=== PATIENT | female | born 1945 | race Caucasian/White ===

== ENCOUNTER 2017-09-10 07:06 | Day surgery (SDC) | payer OTHER ==
[2017-09-09 14:26] VITALS: BMI 25.7
[2017-09-10] MEDS ORDERED: LIDOCAINE HCL 2% (20ML MULTI-DOSE VIAL) NR ONE (07:59)
[2017-09-10] MEDS ORDERED: PROPOFOL 20 ML ONE (08:00)
[2017-09-10] MEDS ORDERED: LIDOCAINE VISCOUS 2% ORAL/TOP 100 ML BOTTLE PO ONE (08:05)
[2017-09-10 09:05] VITALS: PULSE 62
[2017-09-10 09:26] VITALS: BP 114/72; TEMP 98
--- NOTE | 2017-09-11 12:28 | PATH ---
Surgical Pathology Report Patient Name: HANNAH AGARWAL [facility]. Rec. #: [id number] /Age/Gender: 1945 (Age: 72) / F Account: [id number] Location: [facility]-ENDOSCOPY Taken: 09/10/2017 Received: 09/10/2017 Reported: 09/11/2017 Physicians: Sola Cruz M.D. Specimen(s) Received A: BX DUODENUM 2ND PORTION BULB B: BX ANTRUM C: BX DISTAL AND MID ESOPHAGUS Clinical History Lower recto sternal ???process Atrophic gastritis, hiatal hernia Final Diagnosis A. DUODENUM, SECOND PORTION AND BULB, BIOPSY: DUODENAL MUCOSA WITH NO PATHOLOGIC CHANGES. NO HISTOLOGIC EVIDENCE OF GLUTEN SENSITIVE ENTEROPATHY (CELIAC SPRUE) IDENTIFIED. B. STOMACH, ANTRUM, BIOPSY: MILD TO MODERATE CHRONIC ACTIVE GASTRITIS. IMMUNOSTAIN FOR H. PYLORI IS POSITIVE (MODERATE NUMBERS OF ORGANISMS). C. DISTAL AND MID ESOPHAGUS, BIOPSY: SQUAMOUS EPITHELIUM WITH NO PATHOLOGIC CHANGES. NO INTESTINAL METAPLASIA IDENTIFIED (NO BERGMAN'S IDENTIFIED). NO EOSINOPHILIC ESOPHAGITIS IDENTIFIED. Electronically Signed Dakota Alexandre M.D. Gross Description A. Received in formalin, labeled "biopsy duodenum second portion and bulb" are 3 aggarwal, irregular portions of soft tissue averaging 0.3 cm. in greatest dimension. The specimens are submitted in toto in one cassette. B. Received in formalin, labeled "biopsy antrum" are 3 aggarwal, irregular portions of soft tissue ranging from 0.4-0.6 cm. in greatest dimension. The specimens are submitted in toto in one cassette. C. Received in formalin, labeled "biopsy distal and mid esophagus" are 2 aggarwal, irregular portions of soft tissue measuring 0.6 and 0.7 cm. in greatest dimension. The specimens are submitted in toto in one cassette. DL/09/10/2017 saudi09/10/2017
== END 2017-09-10 09:26 | disposition home or self-care (01) ==
LOC: JASU-ENDO 07:06
PROVIDERS: ATTEND Internal Medicine Gastroenterology
PROC: 0DB68ZX Excision of Stomach, Via Natural or Artificial Opening Endoscopic, Diagnostic (ICD-10-PCS; 2017-09-10)
PROC: 0DB28ZX Excision of Middle Esophagus, Via Natural or Artificial Opening Endoscopic, Diagnostic (ICD-10-PCS; 2017-09-10)
PROC: 0DB38ZX Excision of Lower Esophagus, Via Natural or Artificial Opening Endoscopic, Diagnostic (ICD-10-PCS; principal; 2017-09-10 08:00)
DX: K21.9 Gastro-esophageal reflux disease without esophagitis (principal); K44.9 Diaphragmatic hernia without obstruction or gangrene
CPT/HCPCS: 88305-TC; 88342-TC

== ENCOUNTER 2018-11-28 09:18 | Emergency (ER) | payer OTHER ==
[2018-11-28 09:28] VITALS: BP 120/74; PULSE 83; TEMP 97.5; BMI 25.4
--- NOTE | 2018-11-28 09:32 | PDOC ---
History of Present Illness - General Chief Complaint: Injury Stated Complaint: RT ANKLE INJURY Time Seen by Provider: 11/28/18 09:25 History Source: Patient Exam Limitations: No Limitations - History of Present Illness Initial Comments: 11/28/18 10:11 Fell from step inverting her right ankle Occurred: reports: yesterday Severity: reports: moderate Pain Location: reports: none, lower extremity (right ankle ) Method of Injury: Yes: fall Modifying Factors: improves with: None Loss of Consciousness: no loss of consciousness Past History - Travel Traveled outside of the country in the last 30 days: No Close contact w/someone who was outside of country & ill: No - Past Medical History Allergies/Adverse Reactions: Allergies Allergy/AdvReac Type Severity Reaction Status Date / Time No Known Drug Allergies Allergy Verified 11/28/18 09:24 Home Medications: Ambulatory Orders Pravastatin Sodium 20 mg PO DAILY 02/13/15 Azelastine HCl 137 mcg NS BID 09/10/17 Cyanocobalamin (Vitamin B-12) [Vitamin B12] 2,500 mcg PO DAILY 09/10/17 Docusate Sodium [Stool Softener] 50 mg PO DAILY 09/10/17 Fluticasone Prop 0.05% Nasal [Flonase -] 1 - 2 spray NS BID 09/10/17 Ranitidine [Zantac -] 150 mg PO BID #180 tablet 09/10/17 Anemia: Yes Asthma: No Cancer: Yes (RIGHT Breast cancer (1990),MELANOMA) Cardiac Disorders: Yes (MVP WITH PSVTs) CVA: No COPD: Yes CHF: No Dementia: No Diabetes: No GI Disorders: No Disorders: Yes (PROLAPSED BLADDER, FREQ UTI'S) HTN: No Hypercholesterolemia: Yes Liver Disease: No Seizures: No Thyroid Disease: No - Surgical History Abdominal Surgery: Yes (LAPAROSCOPY TO MEND TUBAL SCARRING) Appendectomy: No Cardiac Surgery: No Cholecystectomy: No Lung Surgery: No Neurologic Surgery: No Orthopedic Surgery: No - Immunization History Immunization Up to Date: Yes - Suicide/Smoking/Psychosocial Hx Smoking History: Current every day smoker Have you smoked in the past 12 months: Yes Number of Cigarettes Smoked Daily: 10 Information on smoking cessation initiated: No 'Breaking Loose' booklet given: 09/10/17 Hx Alcohol Use: No Drug/Substance Use Hx: No Substance Use Type: Alcohol Hx Substance Use Treatment: No Review of Systems - Review of Systems Able to Perform ROS?: Yes Is the patient limited Latvian proficient: Yes Constitutional: Yes: Symptoms Reported, See HPI, Malaise. No: Fever HEENTM: No: Symptoms Reported Respiratory: No: Symptoms reported Cardiac (ROS): No: Symptoms Reported Musculoskeletal: Yes: Symptoms Reported, See HPI, Joint Pain, Joint Swelling, Muscle Pain All Other Systems: Reviewed and Negative *Physical Exam - Vital Signs Last Vital Signs Temp Pulse Resp BP Pulse Ox 97.5 F L 83 16 120/74 96 11/28/18 09:24 11/28/18 09:24 11/28/18 09:24 11/28/18 09:24 11/28/18 09:24 - Physical Exam General Appearance: Yes: Nourished, Appropriately Dressed, Apparent Distress, Mild Distress HEENT: positive: VICKIE, Normal ENT Inspection, TMs Normal, Pharynx Normal Neck: positive: Supple. negative: Tender, Lymphadenopathy (R), Lymphadenopathy (L) Respiratory/Chest: positive: Lungs Clear, Normal Breath Sounds Gastrointestinal/Abdominal: positive: Soft. negative: Tender Musculoskeletal: negative: Normal Inspection, Vertebral Tenderness Extremity: positive: Normal Capillary Refill. negative: Normal Range of Motion (many range of motion secondary to swelling, tenderness to lateral malleolus, with point tenderness. Has no tenderness to navicular, fifth metatarsal, or medial malleolus. Negative squeeze test. Neurovascular intact to toes.) Integumentary: positive: Normal Color, Dry, Warm, Ecchymosis, Bruising Neurologic: positive: collections assistant II-XII NML intact, Fully Oriented, Alert, Normal Mood/ Affect, Normal Response Moderate Sedation - Procedure Monitoring Vital Signs: Procedure Monitoring Vital Signs Temperature 97.5 F L 11/28/18 09:24 Pulse Rate 83 11/28/18 09:24 Respiratory Rate 16 11/28/18 09:24 Blood Pressure 120/74 11/28/18 09:24 O2 Sat by Pulse Oximetry (%) 96 11/28/18 09:24 ED Treatment Course - RADIOLOGY Radiology Studies Ordered: Category Date Time Status ANKLE-RIGHT [RAD] Stat Radiology 11/28/18 09:31 Ordered Progress Note - Progress Note Progress Note: X-ray negative for fractures or dislocations, Eligio wrap and Aircast applied, will treat for ankle sprain and follow-up with orthopod *DC/Admit/Observation/Transfer Diagnosis at time of Disposition: Right ankle sprain Qualifiers: Encounter type: initial encounter Involved ligament of ankle: unspecified ligament Qualified Code(s): S93.401A - Sprain of unspecified ligament of right ankle, initial encounter - Discharge Dispostion Disposition: HOME Condition at time of disposition: Stable Decision to Admit order: No - Referrals Referrals: Saji Leal MD [Primary Care Provider] - Fracisco Dia MD [Staff Physician] - - Patient Instructions Printed Discharge Instructions: DI for Ankle Sprain Additional Instructions: Rest, ice to area on and off for 15 minutes 4-6 times a day Avoid heavy lifting or exercise until pain and swelling is resolved or until further directed Keep area highly elevated to reduce swelling Use splints/Eligio wrap as directed Followup with orthopedist in one to 2 days if not improving, if significantly improved may wait one week for followup with orthopedist May use ibuprofen 2-200 mg tablets every 6 hours as needed for pain - Post Discharge Activity
== END 2018-11-28 09:59 | disposition home or self-care (01) ==
LOC: JERFT 09:18
PROC: 2W3QX1Z Immobilization of Right Lower Leg using Splint (ICD-10-PCS; principal; 2018-11-28)
DX: S93.401A Sprain of unspecified ligament of right ankle, initial encounter (principal); W10.8XXA Fall (on) (from) other stairs and steps, initial encounter; Y93.89 Activity, other specified; Y92.89 Other specified places as the place of occurrence of the external cause; Y99.8 Other external cause status; D64.9 Anemia, unspecified; J44.9 Chronic obstructive pulmonary disease, unspecified; E78.00 Pure hypercholesterolemia, unspecified; Z85.3 Personal history of malignant neoplasm of breast; Z85.820 Personal history of malignant melanoma of skin
CPT/HCPCS: 29515; 73610-TC-RT-FY; 99281-25

== ENCOUNTER 2020-01-10 09:14 | Day surgery (SDC) | payer OTHER ==
[2020-01-07 16:32] VITALS: BMI 26.3
[2020-01-10 11:39] VITALS: TEMP 97.3
[2020-01-10 12:09] VITALS: BP 147/89; PULSE 67
--- NOTE | 2020-01-11 16:49 | PATH ---
Surgical Pathology Report Patient Name: HANNAH AGARWAL [facility]. Rec. #: [id number] /Age/Gender: 1945 (Age: 74) / F Account: [id number] Location: [facility]-ENDOSCOPY Taken: 01/10/2020 Received: 01/10/2020 Reported: 01/11/2020 Physicians: Sola Cruz M.D. Specimen(s) Received A: 2ND PORTION DUODENUM AND BULB B: GASTRIC ANTRUM C: GE JUNCTION D: MID ESOPHAGUS Clinical History Abdominal pain Postoperative diagnosis: Hiatal hernia and GERD Final Diagnosis A. BULB AND SECOND PORTION OF DUODENUM, BIOPSY: DUODENAL MUCOSA WITH NO SIGNIFICANT PATHOLOGIC CHANGE. NO HISTOLOGIC EVIDENCE OF INTRAEPITHELIAL LYMPHOCYTOSIS. B. GASTRIC ANTRUM, BIOPSY: GASTRIC MUCOSA WITH MARKED ACTIVE CHRONIC GASTRITIS. IMMUNOSTAIN FOR H. PYLORI IS POSITIVE. NEGATIVE FOR INTESTINAL METAPLASIA. C. GE JUNCTION, BIOPSY: SQUAMOUS / GLANDULAR JUNCTIONAL MUCOSA WITH CHRONIC INFLAMMATION AND FOCAL CHANGES CONSISTENT WITH REFLUX ESOPHAGITIS. NEGATIVE FOR INTESTINAL METAPLASIA. D. MID ESOPHAGUS, BIOPSY: ESOPHAGEAL MUCOSA WITH NO SIGNIFICANT CHANGE. NO HISTOLOGIC EVIDENCE OF EOSINOPHILIC ESOPHAGITIS. Electronically Signed Eric Mcdonnell M.D. Gross Description A. Received in formalin, labeled "biopsy bulb and second portion of duodenum" are 3 aggarwal, irregular portions of soft tissue ranging from 0.4-0.5 cm. in greatest dimension. The specimens are submitted in toto in one cassette. B. Received in formalin, labeled "biopsy gastric antrum" are 4 aggarwal, irregular portions of soft tissue ranging from 0.2-0.4 cm. in greatest dimension. The specimens are submitted in toto in one cassette. C. Received in formalin, labeled "GE junction biopsy" are 3 aggarwal, irregular portions of soft tissue ranging from 0.2-0.3 cm. in greatest dimension. The specimens are submitted in toto in one cassette. D. Received in formalin, labeled "mid esophagus biopsy" are 3 aggarwal, irregular portions of soft tissue ranging from 0.1-0.2 cm. in greatest dimension. The specimens are submitted in toto in one cassette. /01/10/2020 saudi/01/10/2020
== END 2020-01-10 12:37 | disposition home or self-care (01) ==
LOC: JASU-ENDO 09:14
PROVIDERS: ATTEND Internal Medicine Gastroenterology
PROC: 0DB68ZX Excision of Stomach, Via Natural or Artificial Opening Endoscopic, Diagnostic (ICD-10-PCS; 2020-01-10)
PROC: 0DB28ZX Excision of Middle Esophagus, Via Natural or Artificial Opening Endoscopic, Diagnostic (ICD-10-PCS; 2020-01-10)
PROC: 0DB38ZX Excision of Lower Esophagus, Via Natural or Artificial Opening Endoscopic, Diagnostic (ICD-10-PCS; principal; 2020-01-10 10:00)
DX: K21.9 Gastro-esophageal reflux disease without esophagitis (principal); K44.9 Diaphragmatic hernia without obstruction or gangrene
CPT/HCPCS: 88305-TC; 88342-TC

== ENCOUNTER 2022-03-18 04:42 | Day surgery (SDC) | payer OTHER ==
[2022-03-12 08:11] VITALS: BMI 24.9
[2022-03-18 09:15] VITALS: TEMP 97.7
[2022-03-18 10:09] VITALS: PULSE 64
[2022-03-18 10:16] VITALS: BP 127/70
== END 2022-03-18 11:20 | disposition home or self-care (01) ==
LOC: JASU-ENDO 04:42
PROVIDERS: ATTEND Internal Medicine Gastroenterology
PROC: 0DBN8ZX Excision of Sigmoid Colon, Via Natural or Artificial Opening Endoscopic, Diagnostic (ICD-10-PCS; 2022-03-18)
PROC: 0DBP8ZX Excision of Rectum, Via Natural or Artificial Opening Endoscopic, Diagnostic (ICD-10-PCS; 2022-03-18)
PROC: 0DJ08ZZ Inspection of Upper Intestinal Tract, Via Natural or Artificial Opening Endoscopic (ICD-10-PCS; 2022-03-18)
PROC: 0DBK8ZX Excision of Ascending Colon, Via Natural or Artificial Opening Endoscopic, Diagnostic (ICD-10-PCS; principal; 2022-03-18 08:00)
DX: D12.2 Benign neoplasm of ascending colon (principal); D12.5 Benign neoplasm of sigmoid colon; K62.1 Rectal polyp; K63.89 Other specified diseases of intestine; K57.30 Diverticulosis of large intestine without perforation or abscess without bleeding; K64.8 Other hemorrhoids; K21.9 Gastro-esophageal reflux disease without esophagitis; K44.9 Diaphragmatic hernia without obstruction or gangrene
CPT/HCPCS: 88305-TC

== ENCOUNTER 2024-08-05 14:13 | Emergency (ER) | payer OTHER ==
[2024-08-05 14:58] VITALS: BP 123/76; PULSE 82; RESP 18; TEMP 97.9; BMI 23.3
[2024-08-05] MEDS ORDERED: ACETAMINOPHEN INJECTION 100 ML ONE (16:11)
[2024-08-05] MEDS: ACETAMINOPHEN 1000 MG/100 ML BAG IVPB ONE (16:13)
[2024-08-05 16:14] LABS: BASO % 0.3 % (0-2.0); HEMATOCRIT 41.6 % (32.4-45.2); HEMOGLOBIN 13.9 GM/dL (10.7-15.3); LYMPH % 24.2 % (8-40); MCH 30.8 pg (25.7-33.7); MCHC 33.5 g/dl (32.0-36.0); MEAN CELL VOLUME 91.8 fl (80-96); MEAN PLT VOLUME 6.6 fl (7.5-11.1); MONO % 7.6 % (3.8-10.2); NEUT % 66.9 % (42.8-82.8); PLATELET COUNT 255 10^3/uL (134-434); RBC 4.53 M/mm3 (3.60-5.2); RDW 13.8 % (11.6-15.6); WHITE BLOOD COUNT 8.2 K/mm3 (4.0-10.0)
[2024-08-05] MEDS: SODIUM CHLORIDE 0.9% 500 ML INFUS.BAG IV ONE (16:14)
[2024-08-05 16:42] LABS: INR 1.05 (0.83-1.09); PROTHROMBIN TIME (PATIENT) 11.9 SEC (9.7-13.0)
[2024-08-05 16:43] LABS: ALBUMIN 3.9 g/dl (3.4-5.0); CALCIUM 9.7 mg/dL (8.5-10.1)
[2024-08-05 16:44] LABS: BLOOD UREA NITROGEN 10.6 mg/dL (7-18)
[2024-08-05 16:45] LABS: ACTIVATED PTT 32.5 SECONDS (25.2-36.5)
[2024-08-05 16:47] LABS: CREATININE 0.5 mg/dL (0.55-1.3)
[2024-08-05 16:48] LABS: BILIRUBIN,TOTAL 0.8 mg/dL (0.2-1)
[2024-08-05] MEDS ORDERED: MECLIZINE HCL 25 MG TABLET (FP) ONE (16:52)
[2024-08-05] MEDS: MECLIZINE HCL 25 MG TABLET (FP) PO ONE (16:59)
[2024-08-05 21:20] LABS: URINE COLOR YELLOW
[2024-08-05 21:21] LABS: URINE APPEARANCE CLEAR; URINE BILIRUBIN NEGATIVE (NEGATIVE); URINE GLUCOSE (UA) NEGATIVE (NEGATIVE); URINE KETONE 15 mg/dl (NEGATIVE); URINE LEUK ESTERASE NEGATIVE (NEGATIVE); URINE NITRITE NEGATIVE (NEGATIVE); URINE PROTEIN NEGATIVE (NEGATIVE); URINE UROBILINOGEN 0.2 mg/dL (0.2-1.0)
== END 2024-08-05 20:21 | disposition left against medical advice (07) ==
LOC: JER 14:13
PROC: 3E033NZ Introduction of Analgesics, Hypnotics, Sedatives into Peripheral Vein, Percutaneous Approach (ICD-10-PCS; principal; 2024-08-05)
DX: S00.03XA Contusion of scalp, initial encounter (principal); R42 Dizziness and giddiness; W18.30XA Fall on same level, unspecified, initial encounter
CPT/HCPCS: 36415; 70450-TC; 70551-TC; 71045-TC-FY; 71275-TC; 72125-TC; 72170-TC-FY; 74174-TC; 80053; 81003; 84484; 85025; 85610; 85730; 86850; 86900; 86901; 87086; 93005; 93010; 99285-25; J0131

== ENCOUNTER 2024-10-18 15:29 | Observation (INO) | payer OTHER ==
[2024-10-18 15:38] VITALS: BMI 23.3
[2024-10-18 16:54] LABS: BASO % 0.7 % (0-2.0); EOS % 1.3 % (0-4.5); HEMATOCRIT 39.7 % (32.4-45.2); LYMPH % 25.4 % (8-40); MCH 30.3 pg (25.7-33.7); MCHC 32.6 g/dl (32.0-36.0); MEAN CELL VOLUME 92.7 fl (80-96); MEAN PLT VOLUME 6.5 fl (7.5-11.1); MONO % 7.2 % (3.8-10.2); NEUT % 65.4 % (42.8-82.8); PLATELET COUNT 287 10^3/uL (134-434); RBC 4.28 M/mm3 (3.60-5.2); RDW 14.1 % (11.6-15.6); WHITE BLOOD COUNT 9.2 K/mm3 (4.0-10.0)
[2024-10-18 17:26] LABS: POTASSIUM 4.2 mmol/L (3.5-5.1)
[2024-10-18 17:27] LABS: BLOOD UREA NITROGEN 18.9 mg/dL (7-18); CALCIUM 10.3 mg/dL (8.5-10.1)
[2024-10-18 17:28] LABS: ALBUMIN 3.7 g/dl (3.4-5.0)
[2024-10-18 17:31] LABS: CREATININE 0.6 mg/dL (0.55-1.3)
[2024-10-18 17:32] LABS: BILIRUBIN,TOTAL 0.2 mg/dL (0.2-1); TOT PROT 6.5 g/dl (6.4-8.2)
[2024-10-18] MEDS ORDERED: ALBUTEROL SO4 2.5/IPRATROPIUM 0.5 INH SOL 3 ML VIAL.NEB. NEB ONE (18:41)
[2024-10-18 18:57] LABS: EPI CELLS 4 /uL (0-25.1); HYALINE CASTS 0 /uL (0-3.1); PH,URINE 6.5 (5.0-8.0); URINE APPEARANCE CLEAR; URINE BILIRUBIN NEGATIVE (NEGATIVE); URINE COLOR DK YELLOW; URINE GLUCOSE (UA) NEGATIVE (NEGATIVE); URINE KETONE NEGATIVE (NEGATIVE); URINE LEUK ESTERASE TRACE (NEGATIVE); URINE NITRITE POSITIVE (NEGATIVE); URINE PROTEIN NEGATIVE (NEGATIVE); URINE RBC 15 /uL (0-23.9); URINE WBC 18 /uL (0-25.8)
[2024-10-18] MEDS ORDERED: ERTAPENEM SODIUM 1 GM VIAL ONE (19:07)
[2024-10-18] MEDS: ALBUTEROL SO4 2.5/IPRATROPIUM 0.5 INH SOL 3 ML VIAL.NEB. NEB ONE (19:22)
[2024-10-18] MEDS: ERTAPENEM SODIUM 1 GM in SODIUM CHLORIDE 50 ML IVPB ONE (19:38)
[2024-10-18] MEDS ORDERED: ACETAMINOPHEN INJECTION 100 ML ONE (21:08)
[2024-10-18] MEDS ORDERED: FAMOTIDINE 20 MG/50 ML IVPB 20 MG/50 ML MG IVPB ONE (21:08)
[2024-10-18] MEDS: FAMOTIDINE 20 MG/50 ML IVPB 20 MG/50 ML MG IVPB ONE (21:19)
[2024-10-18] MEDS: ACETAMINOPHEN 1000 MG/100 ML BAG IVPB ONE (21:27)
[2024-10-18] MEDS ORDERED: ALBUTEROL SO4 2.5/IPRATROPIUM 0.5 INH SOL 3 ML VIAL.NEB. NEB PRN (23:07)
[2024-10-19 01:50] LABS: MAGNESIUM 2.1 mg/dL (1.8-2.4)
[2024-10-19 06:30] VITALS: RESP 18
[2024-10-19 08:40] LABS: HEMOGLOBIN 12.4 GM/dL (10.7-15.3); MCH 30.2 pg (25.7-33.7); MCHC 32.7 g/dl (32.0-36.0); MEAN CELL VOLUME 92.1 fl (80-96); MEAN PLT VOLUME 6.7 fl (7.5-11.1); PLATELET COUNT 267 10^3/uL (134-434); RBC 4.12 M/mm3 (3.60-5.2); WHITE BLOOD COUNT 7.3 K/mm3 (4.0-10.0)
[2024-10-19 08:59] LABS: POTASSIUM 4.3 mmol/L (3.5-5.1)
[2024-10-19 09:02] LABS: CALCIUM 9.3 mg/dL (8.5-10.1)
[2024-10-19 09:03] LABS: ALBUMIN 3.2 g/dl (3.4-5.0); BLOOD UREA NITROGEN 15.1 mg/dL (7-18); MAGNESIUM 2.1 mg/dL (1.8-2.4)
[2024-10-19 09:06] LABS: CREATININE 0.5 mg/dL (0.55-1.3)
[2024-10-19 09:08] LABS: BILIRUBIN,TOTAL 0.5 mg/dL (0.2-1)
[2024-10-19] MEDS: ENOXAPARIN NA (PORCINE) 40 MG/0.4 ML DISP.SYRIN SQ SCH (09:46)
[2024-10-19] MEDS: methylPREDNISolone NA SUCC 40 MG/1 ML VIAL IVPUSH SCH (09:46)
[2024-10-19] MEDS: MEROPENEM-0.9% SODIUM CHLORIDE 1 GM/50 ML BAG IVPB SCH ×2 (09:47→17:10)
[2024-10-19] MEDS ORDERED: BUDESONIDE/FORMETEROL FUMARATE 160/4.5 mcg INHALER IH SCH (10:00)
[2024-10-19] MEDS: ESCITALOPRAM OXALATE 10 MG TABLET PO SCH (11:03)
[2024-10-19] MEDS: FLUTICASONE/UMECLIDIN/VILANTER(100-62.5-25 TRELEGY ELLIPTA) INAHLER IH SCH (11:03)
[2024-10-19] MEDS: MEROPENEM 1 GM in DEXTROSE 5%-WATER 100 ML IVPB SCH (14:58)
[2024-10-19] MEDS ORDERED: ERTAPENEM SODIUM 1 GM in SODIUM CHLORIDE 50 ML IVPB SCH (19:00)
[2024-10-19] MEDS: ATORVASTATIN CA 10 MG TABLET (FP) PO SCH (22:37)
[2024-10-19] MEDS: MONTELUKAST NA 10 MG TABLET PO SCH (22:37)
[2024-10-20 09:11] VITALS: TEMP 97.3
[2024-10-20] MEDS: predniSONE 20 MG TABLET (UD) PO SCH (09:34)
[2024-10-20 13:57] VITALS: BP 105/69; PULSE 62
[2024-10-20] MEDS: CEFTRIAXONE 1 G/50 ML PREMIX 50 ML IVPB ONE (16:14)
== END 2024-10-20 17:12 | disposition home or self-care (01) ==
LOC: JER 15:29 → JERBED 19:37 → J7W 10-19 00:26
PROVIDERS: ADMIT Internal Medicine; ATTEND Nurse Practitioner Family
PROC: 05HY33Z Insertion of Infusion Device into Upper Vein, Percutaneous Approach (ICD-10-PCS; principal; 2024-10-18)
PROC: 3E033NZ Introduction of Analgesics, Hypnotics, Sedatives into Peripheral Vein, Percutaneous Approach (ICD-10-PCS; 2024-10-18)
PROC: 3E0F7GC Introduction of Other Therapeutic Substance into Respiratory Tract, Via Natural or Artificial Opening (ICD-10-PCS; 2024-10-18)
PROC: 3E03329 Introduction of Other Anti-infective into Peripheral Vein, Percutaneous Approach (ICD-10-PCS; 2024-10-18)
DX: N39.0 Urinary tract infection, site not specified (principal); N81.10 Cystocele, unspecified; E78.00 Pure hypercholesterolemia, unspecified; D64.9 Anemia, unspecified; Z87.440 Personal history of urinary (tract) infections; I34.1 Nonrheumatic mitral (valve) prolapse; Z29.9 Encounter for prophylactic measures, unspecified; Z85.3 Personal history of malignant neoplasm of breast; Z90.10 Acquired absence of unspecified breast and nipple; J44.9 Chronic obstructive pulmonary disease, unspecified
CPT/HCPCS: 36415; 36569; 71045-TC-FY; 80053; 81003; 83735; 84100; 85025; 85027; 87086; 94010; 94640; 96365; 96367; 96368; 96375; 99285-25; G0378; J0131